=== PATIENT | female | born 1955 | race Caucasian/White ===

== ENCOUNTER 2017-09-03 10:16 | Emergency (ER) | payer BC ==
[2017-09-03 10:29] VITALS: BMI 34.5
--- NOTE | 2017-09-03 10:42 | PDOC ---
History of Present Illness - General Chief Complaint: Lightheaded Stated Complaint: VERTIGO Time Seen by Provider: 09/03/17 10:35 - History of Present Illness Initial Comments: 09/03/17 11:02 62yo woman with PMH HTN and BPPV who presents after having 2x episodes of vertigo. She woke up this morning, felt vertiginous similar to past BPPV episodes. Performed self-maneuver where she "turned quickly" and her symptoms improved. She fell back asleep, but when awoke again she continued to have vertigo, performed the maneuver again with minimal improvement of symptoms. She went to work, but continued to have symptoms and decided to come the ED. Does not see a Neurologist regularly. Reports Meclizine helping her in the past. Denies LOC or hitting her head. No blurry vision or WAHL. ROS otherwise negative. 09/03/17 12:56 Past History - Past Medical History Allergies/Adverse Reactions: Allergies Allergy/AdvReac Type Severity Reaction Status Date / Time No Known Allergies Allergy Verified 09/03/17 10:22 Home Medications: Ambulatory Orders Nadolol 20 mg PO DAILY 08/17/15 Meclizine HCl [Motion-Time] 25 mg PO DAILY #30 tablet 09/03/17 COPD: No HTN: Yes Psychiatric Problems: Yes (DEPRESSION) Other medical history: vertigo - Suicide/Smoking/Psychosocial Hx Smoking History: Never smoked Have you smoked in the past 12 months: No Information on smoking cessation initiated: No Hx Alcohol Use: No Drug/Substance Use Hx: No Substance Use Type: None Review of Systems - Review of Systems Is the patient limited Kiswahili proficient: No *Physical Exam - Vital Signs Last Vital Signs Temp Pulse Resp BP Pulse Ox 97.6 F 73 18 0/0 100 09/03/17 10:22 09/03/17 10:22 09/03/17 10:22 09/03/17 10:22 09/03/17 10:22 - Physical Exam General Appearance: Yes: Nourished HEENT: positive: EOMI, ALBA, Normal ENT Inspection Respiratory/Chest: positive: Lungs Clear Cardiovascular: positive: Regular Rhythm, Regular Rate Neurologic: positive: test worker II-XII NML intact, Fully Oriented, Alert Medical Decision Making - Medical Decision Making 09/03/17 11:39 No focal findings on neuro exam. Patient has stated that Meclizine has helped her in the past. Will give her 25mg, and re-assess. 09/03/17 12:48 Patient feels better after Meclizine 25mg. Vertigo improved. No further nausea or vomiting. No change in Neurological exam. Patient is able to ambulate with no difficulties. Counseled on Anika maneuver. She is stable to be discharged home. *DC/Admit/Observation/Transfer Diagnosis at time of Disposition: Vertigo - Discharge Dispostion Disposition: HOME Condition at time of disposition: Stable Admit: No - Prescriptions Prescriptions: Meclizine HCl [Motion-Time] 25 mg PO DAILY #30 tablet - Referrals - Patient Instructions Additional Instructions: Please follow-up with your primary care physician within 1-2 weeks. Please return to the Emergency Department if you have new, worsening, or concerning symptoms. - Post Discharge Activity
[2017-09-03] MEDS ORDERED: MECLIZINE HCL 25 MG TABLET (FP) PO ONE (11:13)
[2017-09-03] MEDS ORDERED: MECLIZINE HCL 25 MG TABLET (FP) ONE (11:29)
--- NOTE | 2017-09-03 11:59 | PDOC ---
Attending Attestation - HPI HPI: 09/03/17 12:00 The patient is a 62 year old female with a significant PMH of benign positional vertigo and hypertension who presents to the emergency department with dizziness since this morning. Patient endorses this dizziness is similar to her previous vertigo episodes. Patient notes that her vertigo is alleviated by Meclizine, and she is here for refill. PCP: Dr. Paredes - Physicial Exam PE: 09/03/17 12:00 Vitals: Triage Vital signs reviewed General Appearance: no acute distress, well nourished well developed, Head: Atraumatic, normocephalic Eyes: Pupils equal reactive round, extraocular movement intact Neck: Supple;No Nuchal rigidity Chest Wall: Nontender Cardiac: Regular rate and rhythm, no murmurs, no rubs, no gallops, Lungs: Clear to auscultation bilateral, good air movement bilaterally, Abdomen: Soft, nondistended, normal bowel sounds, nontender to palpation Extremities: Full range of motion to all extremities, no cyanosis, clubbing, or edema Skin: Warm and dry, no rashes or lesions, no petechiae Neuro: (+) Positive Jasmine-Hallpike. AOX3; Cranial Nerves 2-12 grossly intact, Strength intact to all extremities, Sensation intact to all extremities. Psych: normal mood, normal affect - Medical Decision Making 09/03/17 12:00 Plan Medications: Meclizine 25 mg PO x1 <Humberto Branch - Last Filed: 09/03/17 12:00> - Resident Resident Name: Mindi Delcid - ED Attending Attestation I have performed the following: I have examined & evaluated the patient, The case was reviewed & discussed with the resident, I agree w/resident's findings & plan, Exceptions are as noted - Medical Decision Making Reevaluation status post meclizine patient completely improved now asymptomatic ambulating comfortably around the emergency department history and examination consistent with patient's previous episodes of vertigo. She has outpatient follow-up we have renewed her prescription for meclizine she will return to the emergency department for any severe worsening symptoms or for any concerns. <Jack Mijares - Last Filed: 09/03/17 19:03>
[2017-09-03 13:24] VITALS: BP 156/69; PULSE 75; TEMP 97.8
== END 2017-09-03 13:24 | disposition home or self-care (01) ==
LOC: JER 10:16
DX: R42 Dizziness and giddiness (principal); I10 Essential (primary) hypertension; F32.9 Major depressive disorder, single episode, unspecified
CPT/HCPCS: 99282-25